=== PATIENT | male | born 1995 | race Caucasian/White ===

== ENCOUNTER 2021-05-26 10:06 | Emergency (ER) | payer BC, SELFPAY ==
[2021-05-26 10:09] VITALS: BP 151/101; PULSE 108; RESP 16; TEMP 36.2; O2SAT 95; BMI 27.2
--- NOTE | 2021-05-26 10:49 | ED.VIS.GI ---
HPI HPI - GI History of Present Illness Chief Complaint: GI Bleed Informant: patient Abdominal Pain/Flank Pain Onset: Today Timing: Intermittent Current Severity: Mild Maximum Severity: Mild Nausea/Vomiting/Emesis GI Symptom: Negative for Nausea and Vomiting Diarrhea/Melena/Hematochezia GI Symptom: Positive for Diarrhea; Negative for Melena and Hematochezia Associated Symptoms Associated Symptoms: Negative for Dysuria, Frequency and Hematuria Narrative Narrative: 25-year-old male history of depression prior basal cell skin cancer which was resected in possibly irritable bowel. Recently has had some intermittent constipation and loose stools. Today he had small amount of rectal bleeding when he went to the bathroom at work. Denies any abdominal pain. No weight loss. No nausea, vomiting or hematemesis. He is on no blood thinners. He does not feel weak or dizzy. There were no clots. Prior similar symptoms: No Recent Illness/Hospitalization: No PFSH PFSH Medical History Anxiety Home Medications NK 05/26/21 [History Last Taken Unknown] escitalopram oxalate [Lexapro] 10 mg PO DAILY 05/26/21 [History Last Taken Unknown] Allergy/AdvReac Type Severity Reaction Status Date / Time No Known Allergies Allergy Verified 05/26/21 10:07 Social History Smoking Status: Never smoker ROS ROS ED ROS Narrative Intermittent constipation and loose stools. Review of Systems ROS Unobtainable: Denies due to encephalopathy Constitutional Constitutional ED: Denies fever(s) ENT ENT ED: Denies ear pain Cardiovascular Cardiovascular: Denies chest pain Respiratory/Chest Respiratory/Chest: Denies dyspnea Gastrointestinal Gastrointestinal: Reports constipation and diarrhea; Denies abdominal pain, melena, nausea or vomiting Genitourinary Genitourinary ED: Denies dysuria Musculoskeletal Musculoskeletal: Denies myalgias Integumentary Denies rash Neurologic Neurologic: Denies headache(s) Psychiatric Psychiatric: Reports anxiety; Denies depression Endocrine Endocrinology: Denies polyuria Hematologic/Lymphatic Hematologic/Lymphatic: Denies easy bruising Allergic/Immunologic Allergic/Immunologic ED: Denies urticaria EXAM Physical Exam Narrative Exam Narrative: Well-appearing 25-year-old male vital signs stable afebrile. H EENT exam unremarkable. Moist remembers. Lungs clear to auscultation bilaterally. Heart regular rhythm no murmur. Abdomen soft nontender normal bowel sounds no peritoneal signs. Anus is normal no external hemorrhoids nontender no masses rectal exam nontender no masses. No stool no gross blood. No masses appreciated. Moving all 4 extremities. No bruising. No edema. Back nontender. Neurologic exam normal. Const Vital Signs: 05/26/21 10:09 Temperature 97.1 F L Temperature Source Temporal Pulse Rate 108 H Respiratory Rate 16 Blood Pressure 151/101 H Blood Pressure Mean 117 Pulse Ox 95 Oxygen Delivery Method Room Air Positive well nourished and well developed; Negative for obese, cachectic, contractures or unkempt General Appearance ED: well developed and NAD; Negative for unkempt, cachectic, contractures or pallor Nutritional Appearance: Negative for cachectic or obese HEENT Reports moist mucous membranes normocephalic and atraumatic Eyes PERRL and EOMs intact bilaterally General Eye ED: Negative for pale conjunctiva or scleral icterus Neck no lymphadenopathy, supple and no JVD General: Negative for tenderness Resp normal respiratory effort and clear to auscultation bilaterally Auscultation: Negative for rales, rhonchi or wheezes Cardio regular rate, regular rhythm, S1 normal heart sound, S2 normal heart sound and no murmurs GI non-tender, non-distended and no masses GI Narrative: Rectal exam nontender. No mass. No blood. No external hemorrhoids. Inspection: Negative for abdominal distention Auscultation: normoactive bowel sounds; Negative for hyperactive bowel sounds or hypoactive bowel sounds Palpation: soft; Negative for tender, guarding, rigid, hepatomegaly, splenomegaly, mass, pulsatile mass or rebound tenderness present Back/Spine no CVA tenderness General Back: Negative for CVA tenderness Extremity full ROM General Extremety ED: Negative for edema or tenderness General Extremity: Negative for edema Neuro moves all extremities Sensorium / Orientation: alert, oriented to person, oriented to place and oriented to time; Negative for orientation impaired, confused, lethargic or stuporous Psych mental status grossly normal Appearance: Negative for unkempt Skin no wounds General Skin Exam: Negative for jaundice or pallor Lesions: no lesions Rashes: no rashes MDM MDM MDM Narrative Medical decision making narrative: 25-year-old male with a stable lower GI bleed that may be from a anal seizure or internal hemorrhoid or polyp. There is a small amount. His exam and vital signs are unremarkable. He does not need any labs. He will be referred to outpatient GI follow-up. He knows return if worse. Discharge Plan Triage Chief Complaint: GI Bleed ED Provider: Po Bass Dx/Rx/DC Orders Clinical Impression: Bright red rectal bleeding Instructions: ED Lower GI Bleeding (Stable) Prescriptions: No Action escitalopram oxalate [Lexapro] 10 mg Tablet 10 mg PO DAILY RF: 0 NK RF: 0 Primary Care Provider: Vinny Da Silva Referrals: Vinny Da Silva MD [Primary Care Provider] - Loc Yates DO [STAFF PHYSICIAN] - As soon as possible Activity Restrictions/Additional Instructions: Plenty of fluids and fruits, vegetables and fiber to help with any constipation. Call follow-up with a GI doctor. I referred you to Dr. Yates. You may have additional bleeding. If you have heavy bleeding, clots, black stool or throwing up blood return emergency department otherwise you can do this as an outpatient. Disposition Disposition: Home, Self Care
[2021-05-26 11:03] VITALS: BP 137/63; PULSE 71; RESP 15; O2SAT 98
== END 2021-05-26 11:04 | disposition home or self-care (01) ==
LOC: ED 10:58
PROVIDERS: Emergency Provider Emergency Medicine; Visit Provider Emergency Medicine
DX: K92.2 Gastrointestinal hemorrhage, unspecified (principal); R11.2 Nausea with vomiting, unspecified; R19.7 Diarrhea, unspecified; R10.9 Unspecified abdominal pain; F41.9 Anxiety disorder, unspecified
CPT/HCPCS: 99282

== ENCOUNTER 2021-07-06 08:14 | Day surgery (SDC) | payer BC, SELFPAY ==
[2021-07-06] VITALS (7 sets, daily range): BP systolic 88–122; BP diastolic 60–79; PULSE 72–84; RESP 16–18; TEMP 36.4–37.2; O2SAT 99–100; BMI 26.7
--- NOTE | 2021-07-06 | COLBX_PTH ---
PATIENT: MANISHA SHARMA LOC: EN U#:[id number] AGE/SX: 25/M ROOM: RE07/06/[address]: Dr. Loc Yates DO : 1995 BED: DIS: 07/06/2021 SPEC #: [id number] RECD: 07/06/21 13:13 STATUS: ROSALVA REAbel #: [id number] LUISA: 07/06/21 00:[address]: Loc Yates DEPT: SURGICAL PATHOLOGY RECD BY: Chato Horne ENTERED: 07/06/21 13:14 SP TYPE: COLON BX OTHR DR: Dr. Vinny Da Silva MD Tissues: Ileum, NOS Procedures: Surgery Specimen Level IV HEADER OPERATION: Colonoscopy (MAC) PRE-OP DIAGNOSIS: Bright red rectal bleeding, constipation TISSUE SUBMITTED: Terminal ileum MICROSCOPIC DIAGNOSIS Terminal ileum, biopsy: Benign lymphoid aggregates. See comment. AM:chu 07/07/2021 COMMENT Immunohistochemistry ([id number]) supports the above diagnosis. Case has been reviewed in consultation with Dr. Nye who concurs with the above diagnosis. IDC:JUAN CARLOS MICROSCOPIC DESCRIPTION Slides are reviewed. GROSS DESCRIPTION Received in fixative is one container labeled with the patient's name and designated terminal ileum. The specimen consists of two irregular fragments of light de [place] rosa soft tissue that in aggregate measure 1 x 0.5 x 0.1 cm. The specimen is totally submitted in one cassette. / JUAN CARLOS:chu 07/06/2021 TC:5 CPT: 99050
--- NOTE | 2021-07-06 | IMM_PTH ---
PATIENT: MANISHA SHARMA LOC: EN U#:[id number] AGE/SX: 25/M ROOM: RE07/06/[address]: Dr. Loc Yates DO : 1995 BED: DIS: 07/06/2021 SPEC #: [id number] RECD: 07/07/21 15:00 STATUS: ROSALVA KIMBERLEE #: [id number] LUISA: 07/06/21 00:[address]: Loc Yates DEPT: IMMUNOHISTOCHEMISTRY RECD BY: Modesta Saxena ENTERED: 07/07/21 15:01 SP TYPE: IMMUNO OTHR DR: Dr. Vinny Da Silva MD Tissues: Ileum, NOS Procedures: BCL-2 (add) CD138 (add) CD20 (add) CD45 (add) CD5 (add) CD79A (add) CD3 (initial) PHYSICIAN & INSTITUTION [place] [facility] [id number] SPECIMEN INFORMATION: Tissue Source: Terminal ileum Clinical Info: Bright red rectal bleeding, constipation Specimen Number: [id number] CPT code: 40279, 62763 x6 METHODOLOGY: Deparaffinized sections of prefer/formalin-fixed tissue or PAP/DQ stained slides are incubated with monoclonal/polyclonal antibodies/oligonucleotide probes. Localization is made via biotin free immunoperoxidase method. Appropriate controls are performed and reacted as expected. Results on target cell population are indicated in the following table: RESULTS: ANTIBODY / CLONE RESULT CD3 (PS1) positive CD5 (SP10) positive CD20 (L26) positive CD45 (RP2/18) positive CD79a (11E3) positive CD138 (B-A38) negative BCL-2 (bcl-2/100/D5) negative These tests were developed and their performance characteristics determined by [facility]. They may not have been cleared or approved by the U.S. Food and Drug Administration. The FDA has determined that such clearance or approval is not necessary. The above immunohistochemical/dualISH markers are ordered and reviewed by the Pathologist. INTERPRETATION: Terminal ileum: Polytypic (benign) lymphoid aggregate. AM:chu 07/08/2021
--- NOTE | 2021-07-06 08:36 | HP.PCM_ITS ---
History and Physical Date of Admission: 07/06/21 25 M who presents to the office today for evaluation of lower GI bleeding. Seen in [facility] ED 05/26/21 for evaluation of intermittent constipation, loose stools with new onset of rectal bleeding. Bleed thought to be related to anal seizure or internal hemorrhoid/polyp and discharged to follow up as outpatient. No outer or inner hemorrhoids noted. Additional history of depression, basal cell carcinoma (resected) and possible IBS. He has had a minimal amount of blood with each bowel movements since ED visit. Diarrhea without blood with mucous with stomach cramps and constipation each occurring about once a week. Bowel movements following constipation noted to have blood on toilet paper. This has been going on for recent memory. PCP suggested this was a fiber imbalance. Has attempted fiber gummies which he thinks have helped a little but continues to have the constipation/diarrhea. ROS Const Constitutional: No anorexia, fatigue, fever(s), weight change or sleep problems Eyes Eyes: No change in vision ENT ENT: No abnormal hearing, difficulty swallowing, mouth lesions, tongue swelling or throat swelling Resp Respiratory: No cough or shortness of breath Cardio Cardiology: No chest pain at rest, chest pain with exertion, shortness of breath or dyspnea on exertion Gastro GI: No difficulty swallowing Genitourinary Male: No difficulty urinating or burning urination Musc Musculoskeletal: No joint pain, joint swelling, muscle weakness or decreased muscle mass Skin Skin: No hair loss in leg, yellowing of the eye, itchy eyes, rash, skin ulcer or skin swelling Neuro Neurology: No abnormal hearing, abnormal movements, confusion, unsteady gait/balance or memory loss Psych Psychiatric: No anxiety, No confusion and No memory loss Endo Endocrine: No fatigue or weight change Aller/Imm Allergy/Immunologic: No itchy eyes, throat swelling or tongue swelling Caleb/Lymp Hematologic/Lymphatic: No easy bleeding, easy bruising or enlarged lymph nodes Exam Const General: cooperative and comfortable Nutritional Appearance: average body habitus and well nourished HENNV Head: normal to inspection Ears: hearing grossly normal bilaterally Nose: external nose normal Face and sinus: normal facial exam Mouth: oral mucosae normal Throat: posterior oropharynx normal Eyes General: appearance normal, both eyes and all related structures Neck Neck: normal visual inspection Chest Chest palpation & inspection: normal inspection of the chest and normal palpation of entire chest wall Resp Effort & Inspection: normal respiratory effort Auscultation: Bilateral: Clear to Auscultation Cardio Palpation: normal PMI Rate: regular rate Rhythm: regular rhythm GI Inspection: normal to inspection Auscultation: normal bowel sounds Percussion: normal to percussion Palpation: no hepatosplenomegaly Skin General: no rashes or lesions noted Neuro General: patient alert Extrem General: normal to inspection Psych Affect: normal affect Quality Reporting Tobacco Screening ([facility] 138) Smoking Status: Never smoker Assessment and Plan Assessment and Plan (1) Bright red rectal bleeding: Status: Acute Plan - Dr. Monterroso Friend, DO: The differential diagnosis for his lower GI bleeding includes stercoral ulcer, diverticular bleed, segmental colitis associated with diverticulosis, ulcerative colitis or proctitis. He will undergo colonoscopy to evaluate his lower GI tract. He was explained alternatives, risk, benefits including not withstanding bleeding, infection, sepsis, perforation, need for emergency or . He will have an ASA 1. (2) Constipation: Status: Acute Plan - Dr. Monterroso Friend, DO: I will evaluate his lower GI tract to see if this is suspicious for slow transit constipation, pelvic floor dysfunction, diverticular disease or IBS associated with constipation. I have re-examined the patient. There are no clinical changes since date of exam.
[2021-07-06] MEDS: Lactated Ringers 1,000 ML 15 ML IV (08:55)
--- NOTE | 2021-07-06 11:06 | OP.COLON_ITS ---
Patient Name: Tong Jean-Baptiste Procedure Date: 07/06/2021 9:51 AM Date of : 1995 Age: 25 Procedure: Colonoscopy Indications: Hematochezia Providers: Loc Yates DO Referring MD: Vinny Da Silva Medicines: See the Anesthesia note for documentation of the administered medications Patient Profile: This is a 25 year old male. Refer to note in patient chart for documentation of history and physical. Last Colonoscopy: none. The patient's first colonoscopy is today. Complications: No immediate complications. Procedure: Pre-Anesthesia Assessment: - Prior to the procedure, a History and Physical was performed, and patient medications and allergies were reviewed. The patient is competent. The risks and benefits of the procedure and the sedation options and risks were discussed with the patient. All questions were answered and informed consent was obtained. Patient identification and proposed procedure were verified by the physician in the pre-procedure area. Mental Status Examination: alert and oriented. Airway Examination: normal oropharyngeal airway and neck mobility. Respiratory Examination: clear to auscultation. CV Examination: normal. Prophylactic Antibiotics: The patient does not require prophylactic antibiotics. Prior Anticoagulants: The patient has taken no previous anticoagulant or antiplatelet agents. ASA Grade Assessment: II - A patient with mild systemic disease. After reviewing the risks and benefits, the patient was deemed in satisfactory condition to undergo the procedure. The anesthesia plan was to use moderate sedation / analgesia (conscious sedation). Immediately prior to administration of medications, the patient was re-assessed for adequacy to receive sedatives. The heart rate, respiratory rate, oxygen saturations, blood pressure, adequacy of pulmonary ventilation, and response to care were monitored throughout the procedure. The physical status of the patient was re-assessed after the procedure. After I obtained informed consent, the scope was passed under direct vision. Throughout the procedure, the patient's blood pressure, pulse, and oxygen saturations were monitored continuously. The Duodenoscope was introduced through the anus and advanced to the terminal ileum. The entire colon was examined. Moderate Sedation: Moderate (conscious) sedation was administered by the endoscopy nurse and supervised by the endoscopist. The patient's oxygen saturation, heart rate, blood pressure and response to care were monitored. Total physician intraservice time was 15 minutes. Scope In: 10:03:16 AM Scope Withdrawal Time 0 hours 8 minutes 8 seconds Scope Out: 10:17:33 AM Total Procedure Duration Time 0 hours 14 minutes 17 seconds Findings: An anal fissure was found on perianal exam. The colon (entire examined portion) appeared normal. A patchy area of the distal ileum was congested. Biopsies were taken with a cold forceps for histology. Verification of patient identification for the specimen was done. Estimated blood loss was minimal. Impression: - Anal fissure found on perianal exam. - The entire examined colon is normal. - Congested mucosa in the distal ileum. Biopsied. Recommendation: - Discharge patient to home. - Resume previous diet. - Continue present medications. - Await pathology results. - Return to my office. - No recommendation at this time regarding repeat colonoscopy due to young age. Procedure Code(s): --- Professional --- 44049, Colonoscopy, flexible; with biopsy, single or multiple 52208, 59, Moderate sedation services provided by the same physician or other qualified health elderly caregiver performing the diagnostic or therapeutic service that the sedation supports, requiring the presence of an independent trained observer to assist in the monitoring of the patient's level of consciousness and physiological status; initial 15 minutes of intraservice time, patient age 5 years or older CPT copyright 2017 [employer]. All rights reserved. The codes documented in this report are preliminary and upon toy painter review may be revised to meet current compliance requirements. Loc Yates DO 07/06/2021 11:05:45 AM This report has been signed electronically. Number of Addenda: 1 Note Initiated On: 07/06/2021 9:51 AM Addendum Number: 1 Addendum Date: 02/08/2022 6:50:09 AM MAC was used for sedation during this procedure. Loc Yates DO 02/08/2022 6:50:13 AM This report has been signed electronically.
--- NOTE | 2021-07-06 11:06 | OP.CCLET_ITS ---
02/08/2022 Vinny Da Silva Re : Colonoscopy procedure for Tong Jean-Baptiste Dear Avinash This procedure was performed on Tuesday, July 06, 2021. My impressions and recommendations are as follows: Impressions : - Anal fissure found on perianal exam. - The entire examined colon is normal. - Congested mucosa in the distal ileum. Biopsied. Recommendations : - Discharge patient to home. - Resume previous diet. - Continue present medications. - Await pathology results. - Return to my office. - No recommendation at this time regarding repeat colonoscopy due to young age. My findings are described in the full procedure note, which is enclosed. If I can be of further assistance, please feel free to contact me at . Sincerely, Loc Friend, 07/06/2021 11:05:45 AM This report has been signed electronically.
== END 2021-07-06 23:59 | disposition home or self-care (01) ==
LOC: EN 08:15 → AC 08:17
PROVIDERS: Visit Provider Internal Medicine Gastroenterology
PROC: 0DJD8ZZ Inspection of Lower Intestinal Tract, Via Natural or Artificial Opening Endoscopic (ICD-10-PCS; CPT 45378; principal; 2021-07-06 09:10)
DX: K60.2 Anal fissure, unspecified (principal); K63.89 Other specified diseases of intestine; K92.1 Melena; K59.00 Constipation, unspecified
CPT/HCPCS: 45380; 88305; 88341; 88342; J7120; J2405

== ENCOUNTER → 2024-01-04 | Outpatient (CLI) | payer BC, SELFPAY ==
[2024-01-04 15:42] LABS: Absolute Lymphocyte Count 1.67 X10^3/uL (0.83-4.51); Basophil# 0.03 X10^3/uL; Basophil% 0.6 % (0-1); Eosinophil# 0.11 X10^3/uL; Eosinophils% 2.1 % (0-5); Hematocrit 43.2 % (40-54); Hemoglobin 14.8 g/dL (13.0-16.5); Lymphocyte # 1.67 X10^3/ul (0.83-4.51); Lymphocyte % 31.9 % (19-41); Mean Corp Hgb Conc 34.3 g/dL (32-36); Mean Corpuscular Hgb 28.5 pg (27.0-32.0); Mean Corpuscular Volume 83.2 fL (80-94); Mean Platelet Vol. 10.3 fl (6.2-12.0); Monocyte# 0.35 X10^3/uL; Monocyte% 6.7 % (0-10); NRBC Flagged by Analyzer 0 % (0-5); Neutrophil # 3.03 X10^3/uL (2.7-7.7); Neutrophil % 57.9 % (47-70); Platelet Count 236 K/mm3 (150-450); RBC Distribution Width CV 12.1 % (11.6-14.6); RBC Distribution Width SD 36.6 fl (35.1-43.9); Red Blood Count 5.19 M/mm3 (4.6-6.2); White Blood Count 5.2 K/mm3 (4.4-11.0)
[2024-01-04 16:04] LABS: Erythrocyte Sedimentation Rate 5 mm/hr (0-20)
[2024-01-04 16:13] LABS: ALB/GLOB Ratio 1.2 RATIO (0.9-2.4); AST(SGOT) 23 U/L (15-37); Alanine Aminotransfer ALT/SGPT 55 U/L (16-61); Alkaline Phosphatase 66 U/L (45-117); Anion Gap 8 (5-15); BUN 17 mg/dL (7-18); BUN/Creat Ratio 16.8 RATIO (10-20); CRP < 2.90 mg/L (0.0-3.0); Chloride 107 mmol/L (98-107); Creatinine, Serum 1.01 mg/dL (0.70-1.30); EST Glomerular Filtration Rate 92 mL/min (>60); Est Glom Filt Rate - Afr Amer 111 mL/min (>60); Ferritin 53 ng/mL (26-388); Globulin 3.3 g/dL (2.2-4.2); Glucose 111 mg/dL (74-106); Potassium 3.7 mmol/L (3.5-5.1); Protein, Total 7.3 g/dL (6.4-8.2); Sodium Level 140 mmol/L (136-145)
[2024-01-09 16:09] LABS: ACCA 6 units (0-90); ALCA 9 units (0-60); AMCA 23 units (0-100); Anti-Smooth Muscle ABS 2 Units (0-19); Cytoplasmic Ab (C-ANCA) <1:20 titer (Neg:<1:20); Endomysial Antibody IgA Negative (Negative); Immunoglobulin A 88 mg/dL (90-386); Perinuclear Ab (P-ANCA) <1:20 titer (Neg:<1:20); gASCA 6 units (0-50); t-Transglutaminase IgA <2 U/mL (0-3)
[2024-01-10 22:06] LABS: Anti-Centromere B Ab <0.2 AI (0.0-0.9); Anti-Chromatin <0.2 AI (0.0-0.9); Anti-Jo <0.2 AI (0.0-0.9); Anti-Mitochondrial AB <20.0 Units (0.0-20.0); Anti-Scleroderma-70 AB <0.2 AI (0.0-0.9); Anti-dsDNA Ab <1 IU/mL (0-9); Beef <0.10 kU/L (Class 0); Chocolate <0.10 kU/L (Class 0); Codfish <0.10 kU/L (Class 0); Corn <0.10 kU/L (Class 0); Egg, Whole <0.10 kU/L (Class 0); Milk (Cow) <0.10 kU/L (Class 0); Mussels <0.10 kU/L (Class 0); Peanut <0.10 kU/L (Class 0); Pork <0.10 kU/L (Class 0); RNP Ab 0.3 AI (0.0-0.9); SJOGREN'S Anti-SS-A test < 0.2 AI (0.0-0.9); SJOGREN'S Anti-SS-B test < 0.2 AI (0.0-0.9); Salmon <0.10 kU/L (Class 0); Shrimp <0.10 kU/L (Class 0); Smith Ab <0.2 AI (0.0-0.9); Soybean <0.10 kU/L (Class 0); Tuna <0.10 kU/L (Class 0); Wheat <0.10 kU/L (Class 0)
== END | disposition home or self-care (01) ==
LOC: LAB 15:07
PROVIDERS: Referring Provider Student in an Organized Health Care Education/Training Program; Visit Provider Student in an Organized Health Care Education/Training Program
DX: K92.1 Melena (principal); R19.7 Diarrhea, unspecified
CPT/HCPCS: 80053; 82728; 82784; 83516; 85025; 85652; 86003; 86005; 86036; 86140; 86225; 86235; 86255; 86256; 86671

== ENCOUNTER 2024-12-27 07:37 | Day surgery (SDC) | payer BC, SELFPAY ==
[2024-12-27] VITALS (8 sets, daily range): BP systolic 99–125; BP diastolic 56–90; PULSE 76–89; RESP 16–18; TEMP 36.2–36.6; O2SAT 94–96; BMI 29.0
--- NOTE | 2024-12-27 08:06 | HP.PCM_ITS ---
HPI - General General Date of Admission: 12/27/24 Date of Service: 12/27/24 HPI Narrative MANISHA SHARMA, is a 29 M who presentsChief Complaint: diarrhea, bloating Details: MANISHA SHARMA, is a 29 M who presents to the office today for FU. Additional history of depression, basal cell carcinoma (resected) and possible IBS. Colonoscopy performed 07.06.21 found anal fissure on perianal exam, cauterized; congested mucosa in distal ileum. Biopsy ? benign lymphoid aggregates. CD3, CD5, CD20, CD45, CD79a tumor markers positive. Plan last visit 07.22.21: Abnormal tumor markers ? common in the presence of lymphatic tissue, particularly in a young male. Constipation ? specific diet given. Anal fissure ? seen during colonoscopy which was cauterized. 09.19.21. Patient improved. Previously had difficulty with abdominal cramping and bloody diarrhea. Change in diet has been helpful with cramping. Currently has a soft BM most days of the week following his normal coffee intake. Feels he has odoriferous flatulence with new diet and on days that he is not having a BM. Diarrhea returns about every other week with less severity: he has a mild abdominal cramp followed by a loose BM and the episode is done. Resolution of blood in stool. Patient states that he has been working on eliminating gluten and processed food and this has eliminated most of the diarrhea, abdominal cramping, and bloating. Patient still has frequent odoriferous flatulence. Patient states that he still feels like he has to drink several cups of coffee to have a regular bowel movement during the week. OV 8. Over the past year he has had an increase in bloating, diarrhea, constipation and abdominal pain. He describes episodes of diarrhea and lower abdominal cramping mostly happening on the weekend. He continues to eat mostly an anti inflammatory diet which was recommended by Dr. Yates. He has a bm once everyday that is formed. If he eats fried or processed foods he will get pain and diarrhea. He constantly has bloating and feels like his stomach could explode. He has never had autoimmune work up or food allergy testing. He denies heartburn, melena, n/v, weight loss or fevers. 6 OV Reports that last month he noted increased amounts of nausea with a single episode of vomiting, abdominal pain, cramping, and bloating. In September he had an episode of large amount of hematochezia, and again on 11.01.24(shown picture on cellphone of red toilet water, no clots, no stool present). The second episode of hematochezia he experienced lower right flank pain and sought treatment at Urgent Care. He was negative CVA tenderness, denies hematuria, denies history of kidney stones. He states that BMs while episodes of rectal bleeding burn and are very uncomfortable. He reports daily formed stools mostly, but does have the random loose stool that will follow a formed stool later in the day. He reports eating plenty of fiber and takes adequate water in. [facility] Medical History Marijuana use Heartburn Non-smoker Basal cell carcinoma of skin ADHD Depression Wears contact lenses Wears glasses Cancer Alcohol use Arthritis History of GI bleed Constipation Anxiety Home Medications ?Medication ?Instructions ?Recorded ?Last Taken ?Type simethicone 250 mg capsule 250 mg PO DAILY PRN abdomin al 01/04/24 Unknown Rx distention #30 caps escitalopram oxalate 20 mg tablet 20 mg PO DAILY 12/21 Unknown History Allergy/AdvReac Type Severity Reaction Status Date / Time No Known Allergies Allergy Verified 12/27/24 08:04 Family History Father Hyperlipidemia Mother Hx laparoscopic cholecystectomy Grandfather Lung cancer Surgical History History of colonoscopy Hx of wisdom tooth extraction Social History Smoking Status: Never smoker alcohol intake: current alcohol intake frequency: a few times a month substance use type: does not use ROS Constitutional Constitutional: Denies fatigue, fever(s), poor appetite, weight gain or weight loss Gastrointestinal Gastrointestinal: Denies belching, bloating, change in bowel habits, change in stool character, chewing difficulty, coffee ground emesis, constipation, cramping, diarrhea, dyspepsia, dysphagia, early satiety, excessive flatus, fecal incontinence, heartburn, hematemesis, hematochezia, hemorrhoids, loose stools, melena, nausea, odynophagia, rectal bleeding, tenesmus, vomiting or weight changes Physical Exam Const alert, oriented x3, no apparent distress and healthy appearing General Appearance: cooperative GI normal to inspection, nondistended, normoactive bowel sounds, soft to palpation, non-tender and non-distended Percussion: normal to percussion Rectal Exam: deferred Assessment & Plan Assessment/Plan (1) Irritable bowel syndrome: QUALIFIERS: Irritable bowel syndrome type: with both diarrhea and constipation Qualified Code(s): K58.2 - Mixed irritable bowel syndrome (2) Blood in stool: (3) Diarrhea: (4) Anal fissure: PLAN: Assessment and Plan Assessment and Plan (1) Anal fissure: Status: Acute (2) Irritable bowel syndrome: Status: Chronic Qualifiers: Irritable bowel syndrome type: with both diarrhea and constipation Qualified Code(s): K58.2 - Mixed irritable bowel syndrome Medications: New Diltiazem 10mg/Lidocaine 50mg Suppository diltiazem HCl (bulk) powder 300 mg; lidocaine (bulk) powder 1500 mg; Per 30 supp 1 supp SD BID 30 supp 0RF Plan MANISHA SHARMA, is a 29 M who presents to the office today for FU. Discussed lab results from December, no chemical evidence of food allergies, IBD, or celiac disease. Stool studies not submitted. Reviewed alarm symptoms to seek care in an ER for regarding rectal bleeding. * schedule colonoscopy to investigate rectal tissue * diltiazem/lidocaine RS BID * increase dietary fiber by 25gm/day * increase water intake * low FODMAP foods for gut reset to reduce bloating * office FU 1wk after colonoscopy
--- NOTE | 2024-12-27 08:08 | PCM.PRE.AN2 ---
ASA Classification* ASA Classification ASA Classification: 3 Assessment & Plan Anesthesia* Anesthesia Assessment Anesthesia Assessment: Discussed sedation and/or anesthesia options, risks, benefits, and alternatives with patient/parents/legal guardian/POA. Questions invited. The patient/parents/legal guardian/POA seems to understand and agrees to proceed with anesthesia plan. Reviewed the physical assessment, medical history, allergy history and patient home medications list prior to surgery/procedure/anesthetic and documented any changes. Performed airway and anesthesia risk assessments. Anesthesia Type Anesthesia Type: MAC Anesthesia Focused Assessment* Temperature: 97.8 F Pulse Rate: 89 Blood Pressure: 124/90 Respiratory Rate: 18 Pulse Ox: 95 Airway Assessment Mouth opens: >3 cm Mallampati Score: II Labs Anesthesia Preop lab: CBC WBC 5.2 K/mm3 (4.4-11.0) 01/04/24 15:14 01/04/24 RBC 5.19 M/mm3 (4.6-6.2) 01/04/24 15:14 01/04/24 Hgb 14.8 g/dL (13.0-16.5) 01/04/24 15:14 01/04/24 Hct 43.2 % (40-54) 01/04/24 15:14 01/04/24 Plt Count 236 K/mm3 (150-450) 01/04/24 15:14 01/04/24 CHEMISTRY Potassium 3.7 mmol/L (3.5-5.1) 01/04/24 15:14 01/04/24 Sodium 140 mmol/L (136-145) 01/04/24 15:14 01/04/24 BUN 17 mg/dL (7-18) 01/04/24 15:14 01/04/24 Creatinine 1.01 mg/dL (0.70-1.30) 01/04/24 15:14 01/04/24 Glucose 111 mg/dL (74-106) H 01/04/24 15:14 01/04/24 COAG Pre-Assessment Diagnosis/Proposed Procedure Planned Operative Procedure(s): Colonoscopy Anesthesia History 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 When Was Last Pacemaker Check QUESTION #4 FULL TEXT: You/Your Family Experience fever (hyperthermia) with Anesthesia Last Oral Intake Last Oral intake: Last Oral Intake NPO since 05:30 12/27/24 08:05 Meds taken in AM with sips of No 12/27/24 08:05 water? Meds patient instructed to take am of surgery PONV PONV - lithographic plate maker apprentice: PONV - lithographic plate maker apprentice Female No 12/21/24 14:28 HX of Motion Sickness Yes 12/21/24 14:28 HX of N/V After Surgery No 12/21/24 14:28 Non-Smoker Yes 12/21/24 14:28 Duration of Surgery greater No 12/21/24 14:28 than 60 minutes Number of Risk Factors 2 12/21/24 14:28 PONV Score Moderate Risk 12/21/24 14:28 Height & Weight Height & Weight: Anesthesia: Height & Weight Height 6 ft 1 in 12/27/24 08:05 Weight: 100 kg 12/27/24 08:05 Body Mass Index (BMI) 29.0 12/27/24 08:05 Respiratory Assessment Respiratory Assessment - lithographic plate maker apprentice: Respiratory Tract Infection Hx - lithographic plate maker apprentice Hx Respiratory Tract Infection No 12/21/24 14:28 STOP Sleep Apnea STOP Sleep Apnea - lithographic plate maker apprentice: STOP Sleep Apnea - lithographic plate maker apprentice Hx Hypertension No 12/21/24 14:28 Hx Sleep Apnea No 12/21/24 14:28 CPAP BIPAP Do you snore loudly (louder No 12/21/24 14:28 than talking or can be heard Do you often feel tired/ No 12/21/24 14:28 fatigued/ sleepy during daytime? Has anyone observed you stop No 12/21/24 14:28 breathing during sleep? STOP Results Negative 12/21/24 14:28 QUESTION #5 FULL TEXT : Do you snore loudly (louder than talking or can be heard through closed doors)? 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 Specify any problems Hx of Preganancy in last 3 N/A 12/21/24 14:28 Months Nurse Filling Out Transfusion JZOLLINGE 12/21/24 14:28 & Questions: Date: 12/21/24 12/21/24 14:28 Time: 14:29 12/21/24 14:28 Patient unable to answer at this time (ie. confused, unrespo /Reproduction History /Reproductive History - lithographic plate maker apprentice: /Reproductive Hx- lithographic plate maker apprentice Hx Now No 12/21/24 14:28 Gestational Age (in weeks): EDC: Hx Hx Para Hx Section SAB No 12/21/24 14:28 Active Medications Active Medications: Current Medications Generic Name Dose Route Start Last Admin Trade Name Freq PRN Reason Stop Dose Admin Lactated Ringer's 1,000 mls @ 15 mls/hr 12/27/24 07:45 IV .Q48H FABIÁN PFSH Medical History Marijuana use Heartburn Non-smoker Basal cell carcinoma of skin ADHD Depression Wears contact lenses Wears glasses Cancer Alcohol use Arthritis History of GI bleed Constipation Anxiety Home Medications ?Medication ?Instructions ?Recorded ?Last Taken ?Type simethicone 250 mg capsule 250 mg PO DAILY PRN abdominal 01/04/24 Unknown Rx distention #30 caps escitalopram oxalate 20 mg tablet 20 mg PO DAILY 12/21/24 Unknown History Allergy/AdvReac Type Severity Reaction Status Date / Time No Known Allergies Allergy Verified 12/27/24 08:04 Family History Father Hyperlipidemia Mother Hx laparoscopic cholecystectomy Grandfather Lung cancer Surgical History History of colonoscopy Hx of wisdom tooth extraction Social History Smoking Status: Never smoker alcohol intake: current alcohol intake frequency: a few times a month substance use type: does not use Review of Systems (Anesthesia) ROS Narrative System reviewed and no additional complaints, except as documented.
[2024-12-27] MEDS: Lactated Ringers 1,000 ML 15 ML IV (08:09)
--- NOTE | 2024-12-27 08:30 | COLBX_PTH ---
PATIENT: MANISHA SHARMA LOC: EN U#:[id number] AGE/SX: 29/M ROOM: RE12/27/[address]: Dr. Loc Yates DO : 1995 BED: DIS: 12/27/2024 SPEC #: [id number] RECD: 12/27/24 10:17 STATUS: ROSALVA KIMBERLEE #: [id number] LUISA: 12/27/24 08:[address]: Loc Yates DEPT: SURGICAL PATHOLOGY RECD BY: Carlos Brandt ENTERED: 12/27/24 13:31 SP TYPE: COLON BX BONITA DR: Dr. Vinny Da Silva MD Tissues: A - Ileum, NOS B - COLON BIOPSY Procedures: Surgery Specimen Level IV HEADER OPERATION: Colonoscopy biopsy PRE-OP DIAGNOSIS: Anal fissure, irritable bowel syndrome TISSUE SUBMITTED: A- Terminal ileum biopsy, B- Ileocecal valve biopsy MICROSCOPIC DIAGNOSIS A. Terminal ileum, biopsy: - Normal villous morphology with no specific pathologic change. - Negative for increased intraepithelial lymphocytes. B. Ileocecal valve, biopsy: - Small intestinal mucosa with no specific pathologic change. MICROSCOPIC DESCRIPTION Slides are reviewed. GROSS DESCRIPTION A. Received in fixative is one container labeled with the patient's name and designated Terminal ileum biopsy. The specimen consists of two irregular fragments of light [place] soft tissue that measure 0.4 and 0.5 cm. The specimen is totally submitted in one cassette. B. Received in fixative is one container labeled with the patient's name and designated Ileocecal valve biopsy. The specimen consists of two irregular fragments of light [place] soft tissue that measure 0.3 and 0.4 cm. The specimen is totally submitted in one cassette. AL 12/27/2024 CPT:99618u2
--- NOTE | 2024-12-27 08:48 | OP.COLON_ITS ---
Patient Name: Tong Jean-Baptiste Procedure Date: 12/27/2024 8:02 AM Date of : 1995 Age: 29 Procedure: Colonoscopy Indications: Hematochezia Providers: DO Ranjit Moses MD: Vinny Da Silva Medicines: Monitored Anesthesia Care Patient Profile: This is a 29 year old male. Refer to note in patient chart for documentation of history and physical. Last Colonoscopy: more than 3 years ago. Complications: No immediate complications. Procedure: Pre-Anesthesia Assessment: - Prior to the procedure, a History and Physical was performed, and patient medications and allergies were reviewed. The patient is competent. The risks and benefits of the procedure and the sedation options and risks were discussed with the patient. All questions were answered and informed consent was obtained. Patient identification and proposed procedure were verified by the physician in the pre-procedure area. Mental Status Examination: alert and oriented. Airway Examination: normal oropharyngeal airway and neck mobility. Respiratory Examination: clear to auscultation. CV Examination: normal. Prophylactic Antibiotics: The patient does not require prophylactic antibiotics. Prior Anticoagulants: The patient has taken no anticoagulant or antiplatelet agents except for NSAID medication. ASA Grade Assessment: II - A patient with mild systemic disease. After reviewing the risks and benefits, the patient was deemed in satisfactory condition to undergo the procedure. The anesthesia plan was to use monitored anesthesia care (MAC). Immediately prior to administration of medications, the patient was re-assessed for adequacy to receive sedatives. The heart rate, respiratory rate, oxygen saturations, blood pressure, adequacy of pulmonary ventilation, and response to care were monitored throughout the procedure. The physical status of the patient was re-assessed after the procedure. After I obtained informed consent, the scope was passed under direct vision. Throughout the procedure, the patient's blood pressure, pulse, and oxygen saturations were monitored continuously. The pediatric colonoscope was introduced through the anus and advanced to the cecum, identified by appendiceal orifice and ileocecal valve. The colonoscopy was performed without difficulty. The patient tolerated the procedure well. The quality of the bowel preparation was adequate. The terminal ileum, ileocecal valve, appendiceal orifice, and rectum were photographed. Scope In: 8:24:17 AM Scope Withdrawal Time 0 hours 10 minutes 54 seconds Scope Out: 8:39:29 AM Total Procedure Duration Time 0 hours 15 minutes 12 seconds Findings: The perianal and digital rectal examinations were normal. The colon (entire examined portion) appeared normal. A patchy area of the terminal ileum and ileocecal valve was congested. Biopsies were taken with a cold forceps for histology. Verification of patient identification for the specimen was done. Estimated blood loss was minimal. Impression: - The entire examined colon is normal. - Congested mucosa in the terminal ileum and at the ileocecal valve. Biopsied. - Healed anal fissue Recommendation: - Discharge patient to home. - Resume previous diet. - Continue present medications. - Await pathology results. - Repeat colonoscopy is recommended. The colonoscopy date will be determined after pathology results from today's exam become available for review. Procedure Code(s): --- Professional --- 34871, Colonoscopy, flexible; with biopsy, single or multiple CPT copyright 2021 [employer]. All rights reserved. The codes documented in this report are preliminary and upon human resources talent manager review may be revised to meet current compliance requirements. Loc Yates DO 12/27/2024 8:47:52 AM This report has been signed electronically. Number of Addenda: 0 Note Initiated On: 12/27/2024 8:02 AM
--- NOTE | 2024-12-27 08:48 | OP.PROVAT_ITS ---
12/27/2024 Vinny Da Silva Re : Colonoscopy procedure for Tong Jean-Baptiste Dear Avinash This procedure was performed on December. My impressions and recommendations are as follows: Impressions : - The entire examined colon is normal. - Congested mucosa in the terminal ileum and at the ileocecal valve. Biopsied. - Healed anal fissue Recommendations : - Discharge patient to home. - Resume previous diet. - Continue present medications. - Await pathology results. - Repeat colonoscopy is recommended. The colonoscopy date will be determined after pathology results from today's exam become available for review. My findings are described in the full procedure note, which is enclosed. If I can be of further assistance, please feel free to contact me at . Sincerely, Loc Friend, 12/27/2024 8:47:52 AM This report has been signed electronically.
--- NOTE | 2024-12-27 08:52 | PCM.POST.ANE ---
Anesthesia: Postop Eval I Current Vital Signs Temperature: 97.2 F Pulse Rate: 77 Blood Pressure: 124/90 Respiratory Rate: 16 Pulse Ox: 95 Oxygen Delivery Method: Room Air Assessment Airway patent: Yes Spontaneous unlabored respirations: Yes Mental status: Asleep nausea: No Vomiting: No Anesthesia Complication: No Fluid Hydration Crystalloid volume administer (ml): 600 Total IV fluid infused: 600 Progress Note Anesthesia document: Postop Eval 1 completed: Yes
--- NOTE | 2024-12-27 09:38 | PCM.POSTANE2 ---
Anesthesia Postop Eval I Sum Postop Eval Completion status Anesthesia document: Postop Eval 1 completed: Yes Anesthesia Postop Eval I Summary Anesthesia Postop Eval I Summary: Anesthesia Postop Eval I: Assessment Summary Airway patent Yes 12/27/24 08:53 [email or web address] Spontaneous unlabored Yes 12/27/24 08:53 [email or web address] respirations Mental status Asleep 12/27/24 08:53 [email or web address] nausea No 12/27/24 08:53 [email or web address] Vomiting No 12/27/24 08:53 [email or web address] Anesthesia Postop Eval I: Fluid Summary Crystalloid volume administer 600 12/27/24 08:53 [email or web address] (ml) Colloids volume administered ( ml) Blood Product volume administered (ml) Total IV fluid infused 600 12/27/24 08:53 [email or web address] Anesthesia Postop Eval I: Summary Notes Anesthesia Complication No 12/27/24 08:53 [email or web address] Anesthesia Complication Comment: Post-operative progress note Anesthesia: Postop Eval II Evaluation Mental status: Awake Pain Level: 0 nausea: No Vomiting: No
== END 2024-12-27 09:26 | disposition home or self-care (01) ==
LOC: EN 07:40 → AC 08:46
PROVIDERS: Visit Provider Internal Medicine Gastroenterology
PROC: 0DJD8ZZ Inspection of Lower Intestinal Tract, Via Natural or Artificial Opening Endoscopic (ICD-10-PCS; CPT 45378; principal; 2024-12-27 08:25)
DX: K58.2 Mixed irritable bowel syndrome (principal); K92.1 Melena; K60.2 Anal fissure, unspecified; F41.9 Anxiety disorder, unspecified; F32.A Depression, unspecified
CPT/HCPCS: 45380; 88305; J2405